=== PATIENT | male | born 1985 | race African-American/Black ===

== ENCOUNTER 2022-05-13 14:49 | Emergency (ER) | payer MEDICAID ==
[~2022-05-13] VITALS: Ht 175.2 cm; Wt 68.0 kg
[2022-05-13 16:23] LABS: BASO % 0.3 % (0.0-1.0); EOS # 0.3 10*3/uL (0.0-0.4); EOS % 4.6 % (1.0-4.0); HEMATOCRIT 40.7 % (42.0-52.0); LYMPH # 1.9 10*3/uL (1.3-4.4); MEAN CELL VOLUME 88.3 fl (80.0-94.0); MEAN CORPUSCULAR HGB 28.2 pg (27.0-31.0); MEAN CORPUSCULAR HGB CONC 31.9 g/dl (33.0-37.0); MEAN PLATELET VOLUME 10.4 fl (9.6-12.3); MONO # 0.5 10*3/uL (0.1-1.0); MONO % 7.2 % (3.0-9.0); NEUT # 3.6 10*3/uL (2.3-7.9); NEUT % 56.7 % (47.0-73.0); PLATELET COUNT AUTOMATED 176 10*3/uL (130-400); RED BLOOD COUNT 4.61 10*6/uL (4.50-5.90); RED CELL DISTRI WIDTH 13.7 % (0-14.5); WHITE BLOOD COUNT 6.3 10*3/uL (4.8-10.8)
[2022-05-13 16:42] LABS: ACT PARTIAL THROMBO TIME 27.9 SECONDS (20.0-32.1)
[2022-05-13 16:45] LABS: ALKALINE PHOSPHATASE 69 U/L (45-117); BUN 16 mg/dl (7-24); CHLORIDE 113 mmol/L (98-107); CREATININE 1.18 mg/dL (0.70-1.30); LIPASE 84 U/L (73-393); POTASSIUM 3.9 mmol/L (3.5-5.1); SGPT/ALT 23 U/L (12-78); SODIUM 145 mmol/L (136-145); TOTAL PROTEIN 6.7 gm/dL (6.4-8.2)
[2022-05-13] MEDS ORDERED: ONDANSETRON4 MG SL (20:21)
== END 2022-05-13 20:37 | disposition home or self-care (01) ==
LOC: ED 14:49
PROVIDERS: Family Medicine
DX: K52.9 Noninfective gastroenteritis and colitis, unspecified (principal); Z20.822 Contact with and (suspected) exposure to COVID-19; R11.2 Nausea with vomiting, unspecified

== ENCOUNTER 2023-01-01 07:34 | Emergency (ER) | payer MEDICAID ==
[~2023-01-01] VITALS: Ht 175.2 cm; Wt 72.6 kg
[~2023-01-01 07:34] MED LIST: ONDANSETRON4 MG SL
[2023-01-01 08:30] LABS: BASO % 0.5 % (0.0-1.0); EOS # 0.3 10*3/uL (0.0-0.4); EOS % 3.8 % (1.0-4.0); LYMPH # 2.1 10*3/uL (1.3-4.4); LYMPH % 31.7 % (27.0-41.0); MEAN CELL VOLUME 87.3 fl (80.0-94.0); MEAN CORPUSCULAR HGB 28.4 pg (27.0-31.0); MEAN CORPUSCULAR HGB CONC 32.5 g/dl (33.0-37.0); MEAN PLATELET VOLUME 10.1 fl (9.6-12.3); MONO # 0.5 10*3/uL (0.1-1.0); MONO % 7.6 % (3.0-9.0); NEUT # 3.7 10*3/uL (2.3-7.9); NEUT % 56.2 % (47.0-73.0); PLATELET COUNT AUTOMATED 170 10*3/uL (130-400); RED BLOOD COUNT 4.58 10*6/uL (4.50-5.90); RED CELL DISTRI WIDTH 13.8 % (0-14.5); WHITE BLOOD COUNT 6.6 10*3/uL (4.8-10.8)
[2023-01-01 09:03] LABS: ALKALINE PHOSPHATASE 64 U/L (46-116); BUN 14 mg/dl (9-23); CHLORIDE 110 mmol/L (98-107); LIPASE 27 U/L (12-53); POTASSIUM 3.7 mmol/L (3.4-5.1); SGPT/ALT 22 U/L (10-49); TOTAL PROTEIN 6.7 gm/dL (6.0-8.0)
[2023-01-01 10:17] LABS: BILIRUBIN Negative (Negative); BLOOD Trace-Lysed (Negative); CLARITY Clear (Clear); COLOR Yellow (Yellow); GLUCOSE Negative (Negative); KETONE Trace (Negative); LEUKO ESTERASE Negative (Negative); NITRITE Negative (Negative); SPECIFIC GRAVITY >= 1.030 (1.001-1.030)
[2023-01-01 10:23] LABS: MUCOUS 1+
[2023-01-01] MEDS ORDERED: Motrin,Rufen800 MG PO (11:48)
[2023-01-01] MEDS ORDERED: ONDANSETRON4 MG SL (11:48)
[2023-01-01] MEDS ORDERED: HYDROCODONE-AC1 EAC1 PO (11:48)
== END 2023-01-01 12:40 | disposition home or self-care (01) ==
LOC: ED 07:34
PROVIDERS: Emergency Medicine
DX: R10.9 Unspecified abdominal pain (principal); N20.0 Calculus of kidney

== ENCOUNTER 2023-03-12 19:25 | Emergency (ER) | payer MEDICAID ==
[~2023-03-12] VITALS: Ht 175.2 cm; Wt 61.2 kg
[~2023-03-12 19:25] MED LIST changes: +HYDROCODONE-AC1 EAC1 PO; +Motrin,Rufen800 MG PO
== END 2023-03-13 00:13 | disposition left against medical advice (07) ==
LOC: ED 19:25
DX: R10.30 Lower abdominal pain, unspecified (principal); R11.10 Vomiting, unspecified; Z53.21 Procedure and treatment not carried out due to patient leaving prior to being seen by health care provider

== ENCOUNTER 2023-06-01 21:06 | Emergency (ER) | payer OTHER, MEDICAID ==
[~2023-06-01] VITALS: Ht 175.2 cm; Wt 68.0 kg
== END 2023-06-02 00:35 | disposition home or self-care (01) ==
LOC: ED 21:06
DX: M54.50 Low back pain, unspecified (principal); M54.9 Dorsalgia, unspecified; W19.XXXA Unspecified fall, initial encounter

== ENCOUNTER 2024-05-15 12:50 | Emergency (ER) | payer SELFPAY ==
[~2024-05-15] VITALS: Wt 63.5 kg
[2024-05-15] MEDS ORDERED: Ketorolac Tromethamine 30 MG/ML VIAL IV ONE (12:55)
[2024-05-15] MEDS ORDERED: IOHEXOL 300 MG/ML 100 ML VIAL IV ONE (13:00)
[2024-05-15 13:17] LABS: BASO % 0.3 % (0.0-1.0); EOS # 0.2 10*3/uL (0.0-0.4); EOS % 2.2 % (1.0-4.0); HEMATOCRIT 40.8 % (42.0-52.0); MEAN CELL VOLUME 86.6 fl (80.0-94.0); MEAN CORPUSCULAR HGB 27.6 pg (27.0-31.0); MEAN CORPUSCULAR HGB CONC 31.9 g/dl (33.0-37.0); MONO # 0.4 10*3/uL (0.1-1.0); MONO % 6.4 % (3.0-9.0); NEUT # 3.6 10*3/uL (2.3-7.9); NEUT % 52.5 % (47.0-73.0); PLATELET COUNT AUTOMATED 184 10*3/uL (130-400); RED BLOOD COUNT 4.71 10*6/uL (4.50-5.90); RED CELL DISTRI WIDTH 13.3 % (0-14.5); WHITE BLOOD COUNT 6.9 10*3/uL (4.8-10.8)
[2024-05-15] MEDS ORDERED: IOHEXOL 300 MG/ML 100 ML VIAL ONE (13:17)
[2024-05-15 13:36] LABS: ALKALINE PHOSPHATASE 79 U/L (46-116); BUN 13 mg/dl (9-23); CHLORIDE 107 mmol/L (98-107); LIPASE 26 U/L (12-53); POTASSIUM 3.5 mmol/L (3.4-5.1); SGPT/ALT 14 U/L (5-49); TOTAL PROTEIN 7.2 gm/dL (6.0-8.0)
[2024-05-15] MEDS ORDERED: SODIUM CHLORIDE 0.9% 500 ML IV ONE (13:45)
[2024-05-15] MEDS ORDERED: PYRIDIUM100 MG PO (14:24)
[2024-05-15] MEDS ORDERED: MIRALAX POWDER17 G1 PO (14:24)
[2024-05-15] MEDS ORDERED: MELOXICAM15 MG PO (14:24)
[2024-05-15] MEDS ORDERED: FLOMAX0.4 MG PO (14:24)
== END 2024-05-15 14:21 | disposition home or self-care (01) ==
LOC: ED 12:50
PROVIDERS: Internal Medicine
DX: N13.2 Hydronephrosis with renal and ureteral calculous obstruction (principal); K59.00 Constipation, unspecified

== ENCOUNTER 2024-05-17 21:34 | Emergency (ER) | payer SELFPAY ==
[~2024-05-17] VITALS: Ht 177.8 cm; Wt 63.5 kg
[~2024-05-17 21:34] MED LIST changes: +FLOMAX0.4 MG PO; +MELOXICAM15 MG PO; +MIRALAX POWDER17 G1 PO; +PYRIDIUM100 MG PO
[2024-05-17 22:34] LABS: BASO % 0.2 % (0.0-1.0); EOS % 0.5 % (1.0-4.0); HEMATOCRIT 39.5 % (42.0-52.0); MEAN CELL VOLUME 87.6 fl (80.0-94.0); MEAN CORPUSCULAR HGB 27.7 pg (27.0-31.0); MEAN CORPUSCULAR HGB CONC 31.6 g/dl (33.0-37.0); MEAN PLATELET VOLUME 10.3 fl (9.6-12.3); MONO # 0.5 10*3/uL (0.1-1.0); MONO % 5.8 % (3.0-9.0); NEUT % 80.2 % (47.0-73.0); PLATELET COUNT AUTOMATED 177 10*3/uL (130-400); RED BLOOD COUNT 4.51 10*6/uL (4.50-5.90); RED CELL DISTRI WIDTH 13.5 % (0-14.5); WHITE BLOOD COUNT 8.8 10*3/uL (4.8-10.8)
[2024-05-17 22:48] LABS: BUN 12 mg/dl (9-23); CHLORIDE 106 mmol/L (98-107); POTASSIUM 4.1 mmol/L (3.4-5.1)
[2024-05-17] MEDS ORDERED: Ketorolac Tromethamine 60 MG/2 ML VIAL IM ONE (23:45)
[2024-05-17] MEDS ORDERED: CIPRO500 MG PO (23:55)
== END 2024-05-18 00:15 | disposition home or self-care (01) ==
LOC: ED 21:34
PROVIDERS: Internal Medicine
DX: N20.0 Calculus of kidney (principal); R11.2 Nausea with vomiting, unspecified; F17.200 Nicotine dependence, unspecified, uncomplicated; Z87.442 Personal history of urinary calculi; Z79.899 Other long term (current) drug therapy